=== PATIENT | female | born 1945 | race Hispanic/Latino ===

== ENCOUNTER → 2019-01-17 | Outpatient (CLI) | payer MEDICARE ==
[2019-01-17 11:55] LABS: CLARITY,URINE CLOUDY (CLEAR); COLOR,URINE YELLOW (YELLOW); KETONES,URINE NEGATIVE (NEGATIVE); LEUKOCYTE ESTERASE ,URINE 2+ (NEGATIVE); NITRITE,URINE NEGATIVE (NEGATIVE); PROTEIN,URINE DIPSTICK TRACE (NEGATIVE)
[2019-01-17 11:56] LABS: BASOPHILS % 0.2 % (0.0-1.0); BILIRUBIN,URINE NEGATIVE (NEGATIVE); EOSINOPHILS # (AUTO) 0.2 (0.0-0.4); EOSINOPHILS % 1.4 % (0.0-6.0); HEMATOCRIT 35.7 % (34.2-44.1); HEMOGLOBIN 10.9 g/dL (12.0-16.0); LYMPHOCYTES # (AUTO) 1.8 (1.0-3.2); LYMPHOCYTES % 14.8 % (18.0-39.1); MEAN CORPUSCULAR HEMOGLOBIN 29.8 pg (28-32); MEAN CORPUSCULAR HGB CONC 30.5 g/dL (31-35); MEAN CORPUSCULAR VOLUME 97.5 fL (81-99); MONOCYTES # (AUTO) 1.1 (0.2-0.8); MONOCYTES % 8.8 % (4.4-11.3); NEUTROPHILS # (AUTO) 9.1 (2.1-6.9); NEUTROPHILS % 74.5 % (38.7-80.0); PLATELET COUNT 295 x10e3/uL (140-360); RED BLOOD COUNT 3.66 x10e6/uL (3.6-5.1); RED CELL DISTRIBUTION WIDTH 14.4 % (11.7-14.4); URINE UROBILINOGEN 0.2 mg/dL (0.2 - 1)
[2019-01-17 12:19] LABS: ALBUMIN/GLOBULIN RATIO 0.9 (0.8-2.0); ANION GAP 14.8 mmol/L (8-16); CALCIUM 9.2 mg/dL (8.4-10.2); CREATININE, SERUM 1.93 mg/dL (0.57-1.11); MAGNESIUM 2.1 MG/DL (1.3-2.1); PHOSPHORUS 3.5 MG/DL (2.3-4.7); POTASSIUM 3.8 mmol/L (3.5-5.1)
[2019-01-17 12:32] LABS: TOTAL PROTEIN, URINE 19.7 mg/dL (1-14)
[2019-01-17 12:54] LABS: CREATININE,URINE RANDOM 82.37 mg/dL (47-110)
[2019-01-17 12:55] LABS: PROTEIN/CREATININE RATIO,URINE 0.24
== END ==
LOC: LAB 11:02
PROVIDERS: ATTEND Internal Medicine Nephrology
DX: I25.10 Atherosclerotic heart disease of native coronary artery without angina pectoris (principal); N18.9 Chronic kidney disease, unspecified; D63.1 Anemia in chronic kidney disease; N39.0 Urinary tract infection, site not specified; R33.9 Retention of urine, unspecified; R53.81 Other malaise; M10.9 Gout, unspecified; G47.30 Sleep apnea, unspecified; Z79.899 Other long term (current) drug therapy; Z71.89 Other specified counseling; Z94.0 Kidney transplant status
CPT/HCPCS: 36415; 80053; 80158; 81003; 82570; 83735; 84100; 84156; 84550; 85025; 87086

== ENCOUNTER 2019-11-21 22:10 | Emergency (ER) | payer MEDICARE ==
[~2019-11-21] VITALS: Ht 154.9 cm; Wt 94.3 kg
--- OUTSIDE RECORDS SUMMARY | 2019-11-21 22:14 | XMS REPORT | Summary of Care ---
Author Author [facility] Address [address] [place] [address] Phone Unavailable Care Team Providers Care Environment Coordinator Name Role Phone ANA REIS M.D. 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 Quantity: 30 CHATO David, ANA * Start : 06-May-2008 Active Allergies and Adverse Reactions Name Dates Details Allergy history not documented Status: Procedures Procedure Dates Details History of section Completed History of Spinal surgery Completed History of Cholecystectomy Completed History of Tubal ligation Completed History of Kidney transplantation Completed History of Hysterectomy Completed History of Bladder surgery Completed History of Coronary artery bypass graft Completed 10-Jan-2018 Immunization Name Dates Details Immunizations not documented Social History Name Dates Details Unknown if ever smoked Vital Signs Date Test Result Details No Known Vitals to report Results Date Description Value Details Results not documented Plan of Care Name Dates Details Planned Observations Planned Goals not documented Instructions Name Dates Details Instructions not documented Encounters Appointment; KRISTYN SHARIF M.D. Encounter Diagnosis: Problem not documented On: 01-Apr-2018 14:45 Appointment; ROSA ISELA VALDOVINOS Encounter Diagnosis: Problem not documented On: 22-Jul-2018 10:30 Appointment; ROSA ISELA VALDOVINOS Encounter Diagnosis: Problem not documented On: 12-Aug-2018 11:30 Appointment; ROSA ISELA VALDOVINOS Encounter Diagnosis: Problem not documented On: 18-Oct-2018 10:30 Appointment; ROSA ISELA VALDOVINOS Encounter Diagnosis: Problem not documented On: 30-Oct-2018 10:45 Appointment; ROSA ISELA VALDOVINOS Encounter Diagnosis: Problem not documented On: 20-Nov-2018 10:30
--- OUTSIDE RECORDS SUMMARY | 2019-11-21 22:14 | XMS REPORT ---
[facility] Address Unknown Phone Unavailable Care Team Providers Care Certified Nurse Midwife Name Role Phone BILL DE JESUS Unavailable Unavailable Problems This patient has no known problems. Allergies, Adverse Reactions, Alerts This patient has no known allergies or adverse reactions. Medications This patient has no known medications. Encounters Start Date/Time End Date/Time Encounter Type Admission Type Attending [facility] Care Facility Care Department Encounter ID 2019-04-23 13:21:00 Inpatient U [facility] [id number] 2019-10-08 17:41:00 2019-10-06 21:52:00 Inpatient E [facility] [id number] 2019-09-15 14:40:00 2019-09-15 10:41:00 Inpatient E [facility] [id number] 2019-08-23 10:56:00 2019-08-23 05:18:00 Inpatient E [facility] [id number] 2019-07-30 05:11:00 2019-07-30 01:11:00 Inpatient E [facility] [id number] 2019-07-27 17:17:00 2019-07-27 17:17:00 Emergency E [facility] [id number] 2019-05-07 20:02:00 2019-05-07 16:02:00 Inpatient E [facility] [id number] 2019-03-19 03:00:00 2019-03-18 23:39:00 Inpatient E [facility] [id number] 2019-03-17 16:34:00 2019-03-17 16:34:00 Outpatient [facility] [id number] 2019-01-20 22:20:00 2019-01-20 22:20:00 Emergency E [facility] [id number] 2019-01-17 17:10:00 2019-01-17 17:10:00 Emergency E [facility] [id number] Results Test Description Test Time Test Comments Text Results Atomic Results Result Comments BK VIRUS PCR, PLASMA 2019-01-24 14:32:00 BK VIRUS, PLASMA, NEG (BEAKER) (test isyy=9552) Negative or below the linear range of the assay (<1,000 copies/mL) Patients may have replicating BK Virus which is of no clinical significance. Vi ral load measurements are helpful to identify BK Virus replication of potential clinical significance. Consensus recommendations have been published of thresho ld values for the presumptive diagnosis of polyomavirus-associated nephropathy ( Transplantation 2005;79:6804-3197).A BK Virus load greater than 5,000-10,000 manager copy ies/mL in the plasma is consistent with the presumptive diagnosis of polyoma-ass ociated nephropathy in renal transplant recipients.BK Virus DNA was assessed usi ng quantitative polymerase chain reaction and fluorescent monitoring of a specif ic hybridized probe. Genetic variation and other factors can affect the accurac y of nucleic acid testing. Therefore, the results should be interpreted in ligh t of clinical data.This test was developed and its performance characteristics d etermined by the [facility] Pathology Department, Section of [facility] Pathology. It has not been cleared or approved by the U.S. Food and Drug Administration (FDA). Since FDA approval is not required for clinical use of th e test, validation was done as required by the Clinical Laboratory Improvement A mendments of 1988.CMV PCR, [id number] 13:52:00* Test Item Value Reference Range Comments CMV VIRAL LOAD - NEGATIVE (THIAGOAKER) (test wviw=6057) Negative or below the linear range of the assay (<375 copies/mL) Cytomegalovirus (CMV) infection can cause significant disease in immunosuppresse d patients. However, it is common for CMV to manifest as a limited infection whi ch is of no clinical significance in immunosuppressed patients or in healthy ind ividuals.Viral load measurements are helpful to identify clinical CMV infection and to guide the pre-emptive management of antiviral therapy. For treatment of CMV infection due to reactivation in transplant recipients, a threshold between 4,000 and 5,000 copies/mL is suggested. For treatment of primary CMV infection, a lower threshold can be used.CMV infection may also be monitored using weekly serial measurements. Serial measurements of CMV DNA viral load can be evaluated by identifying a 10-fold change, as well as assessing the CMV DNA viral load and the clinical context for each patient.The plasma CMV DNA viral load was detected using quantitative polymerase chain reaction and fluorescent monitoring of a s pecific hybridized probe. Genetic variation and other factors can affect the acc uracy of nucleic acid testing. Therefore, the results should be interpreted in l ight of clinical data. A negative result may not exclude the presence of CMV dis ease.This test was developed and its performance characteristics determined by [facility] Pathology Department, Section of Molecular Patholog y. It has not been cleared or approved by the U.S. Food and Drug Administration (FDA), since FDA approval is not required for clinical use of the test. Validati on was done as required by The Clinical Laboratory Improvement Amendments of 198 8.CREATININE, RANDOM [id number] 15:27:00* Test Item Value Reference Range Comments CREATININE URINE (BEAKER) (test rokp=417) 26.4 mg/dL Reference Range: No NormalsTACROLIMUS [id number] 14:52:00* Test Item Value Reference Range Comments TACROLIMUS BLOOD (BEAKER) (test tlhc=462) < ng/mL 10.0-20.0 HEMOGLOBIN [id number] 14:03:00* Test Item Value Reference Range Comments HEMOGLOBIN A1C (BEAKER) (test hymh=826) 6.8 % 4.3-6.1 PROTEIN, RANDOM [id number] 13:31:00* Test Item Value Reference Range Comments PROTEIN, URINE (BEAKER) (test bzxs=7990) < mg/dL 0-14 VITAMIN D, [id number] 13:05:00* Test Item Value Reference Range Comments VITAMIN D 25-OH (BEAKER) (test ffag=7427) 39.2 ng/mL 6.6-49.9 Effective 07/11/2017: Reference Range ChangeNew: 6.6-49.9 ng/mL Previous: 13.0 -47.8 ng/mLRecommended Vitamin D Target Range: 30.0-40.0 ng/mLURINALYSIS W/ REFLEX URINE [id number] 12:59:00* Test Item Value Reference Range Comments COLOR (BEAKER) (test bnfc=058) Light Yellow CLARITY (BEAKER) (test ioic=917) Cloudy SPECIFIC GRAVITY UA (BEAKER) (test gesk=777) 1.005 1.001-1.035 PH UA (BEAKER) (test nxfd=215) 8.0 5.0-8.0 PROTEIN UA (BEAKER) (test cjwg=015) 10 mg/dL Negative GLUCOSE UA (BEAKER) (test typd=476) Negative Negative KETONES UA (BEAKER) (test vemp=241) Negative Negative BILIRUBIN UA (BEAKER) (test dnkf=390) Negative Negative BLOOD UA (BEAKER) (test spjx=143) Trace Negative NITRITE UA (BEAKER) (test tcdx=804) Negative Negative LEUKOCYTE ESTERASE UA (BEAKER) (test tdwx=847) Large Negative UROBILINOGEN UA (BEAKER) (test rjfw=618) 0.2 mg/dL 0.2-1.0 RBC UA (BEAKER) (test qlgf=761) 4 /HPF WBC UA (BEAKER) (test kbft=238) 0 /HPF AMORPHOUS CRYSTALS (BEAKER) (test ufkf=5209) Moderate SOURCE(BEAKER) (test kazy=6919) COMPREHENSIVE METABOLIC [id number] 12:57:00* Test Item Value Reference Range Comments TOTAL PROTEIN (BEAKER) (test bgrp=794) 6.3 gm/dL 6.0-8.3 ALBUMIN (BEAKER) (test splz=8182) 3.3 g/dL 3.5-5.0 ALKALINE PHOSPHATASE (BEAKER) (test enjd=480) 84 U/L 40-150 BILIRUBIN TOTAL (BEAKER) (test ptul=376) 0.5 mg/dL 0.2-1.2 SODIUM (BEAKER) (test nbbe=316) 139 meq/L 136-145 POTASSIUM (BEAKER) (test lxko=627) 4.1 meq/L 3.5-5.1 CHLORIDE (BEAKER) (test tuxy=725) 100 meq/L 98-107 CO2 (BEAKER) (test qnub=978) 30 meq/L 22-29 BLOOD UREA NITROGEN (BEAKER) (test nzbw=946) 34 mg/dL 7-21 CREATININE (BEAKER) (test pfxx=890) 1.87 mg/dL 0.57-1.25 GLUCOSE RANDOM (BEAKER) (test wkgn=714) 236 mg/dL 70-105 CALCIUM (BEAKER) (test acyy=396) 9.2 mg/dL 8.4-10.2 AST (SGOT) (BEAKER) (test pfru=610) 19 U/L 5-34 ALT (SGPT) (BEAKER) (test gcty=694) 13 U/L 6-55 EGFR (BEAKER) (test xyvv=5025) 26 mL/min/1.73 sq m ESTIMATED GFR IS NOT ACCURATE CREATININE CLEARANCE IN PREDICTING GLOMERULAR FILTRATION RATE. ESTIMATED GFR IS NOT APPLICABLE FOR DIALYSIS PATIENTS. PTH, [id number] 12:53:00* Test Item Value Reference Range Comments PARATHYROID HORMONE INTACT (BEAKER) (test prbx=625) 187.6 pg/mL 8.5-72.5 URIC [id number] 12:49:00* Test Item Value Reference Range Comments URIC ACID (BEAKER) (test jnar=432) 10.2 mg/dL 2.6-7.2 [id number] 12:49:00* Test Item Value Reference Range Comments MAGNESIUM (BEAKER) (test nmuc=129) 1.8 mg/dL 1.6-2.6 [id number] 12:49:00* Test Item Value Reference Range Comments PHOSPHORUS (BEAKER) (test xrqe=932) 2.7 mg/dL 2.3-4.7 LIPID [id number] 12:49:00* Test Item Value Reference Range Comments TRIGLYCERIDES (BEAKER) (test wpgo=106) 210 mg/dL CHOLESTEROL (BEAKER) (test svqe=566) 111 mg/dL HDL CHOLESTEROL (BEAKER) (test ttej=668) 38 mg/dL LDL CHOLESTEROL CALCULATED (BEAKER) (test jdnn=176) 31 mg/dL Triglyceride Reference Range: Low Risk <150 Borderline 150-199 High Risk 200-499 Very High Risk >=500Cholesterol Reference Range: Low Risk <200 Borderline 200-239 High Risk >240HDL Cholesterol Reference Range: Low Risk >=60 High Risk <40LDL Cholesterol Reference Range: Optimal <100 Near Optimal 100-129 Borderline 130-159 High 160-189 Very High >=190 CBC W/PLT COUNT & AUTO [id number] 12:33:00* Test Item Value Reference Range Comments WHITE BLOOD CELL COUNT (BEAKER) (test ycgf=045) 12.5 K/ L 3.5-10.5 RED BLOOD CELL COUNT (BEAKER) (test pbid=313) 3.50 M/ L 3.93-5.22 HEMOGLOBIN (BEAKER) (test lpln=752) 10.4 GM/DL 11.2-15.7 HEMATOCRIT (BEAKER) (test tyvz=981) 35.4 % 34.1-44.9 MEAN CORPUSCULAR VOLUME (BEAKER) (test sxey=889) 101.1 fL 79.4-94.8 MEAN CORPUSCULAR HEMOGLOBIN (BEAKER) (test vktz=381) 29.7 pg 25.6-32.2 MEAN CORPUSCULAR HEMOGLOBIN CONC (BEAKER) (test fqqb=278) 29.4 GM/DL 32.2-35.5 RED CELL DISTRIBUTION WIDTH (BEAKER) (test ctwi=722) 13.9 % 11.7-14.4 PLATELET COUNT (BEAKER) (test pvsb=615) 338 K/CU MM 150-450 MEAN PLATELET VOLUME (BEAKER) (test wdsh=295) 10.0 fL 9.4-12.3 NUCLEATED RED BLOOD CELLS (BEAKER) (test yydd=112) 0 /100 WBC 0-0 NEUTROPHILS RELATIVE PERCENT (BEAKER) (test eqio=141) 81 % LYMPHOCYTES RELATIVE PERCENT (BEAKER) (test pggz=088) 11 % MONOCYTES RELATIVE PERCENT (BEAKER) (test wkou=389) 5 % EOSINOPHILS RELATIVE PERCENT (BEAKER) (test fqdd=768) 2 % BASOPHILS RELATIVE PERCENT (BEAKER) (test fxtd=724) 0 % NEUTROPHILS ABSOLUTE COUNT (BEAKER) (test qkjq=127) 10.10 K/ L 1.56-6.13 LYMPHOCYTES ABSOLUTE COUNT (BEAKER) (test hxxd=679) 1.40 K/ L 1.18-3.74 MONOCYTES ABSOLUTE COUNT (BEAKER) (test gktq=236) 0.67 K/ L 0.24-0.36 EOSINOPHILS ABSOLUTE COUNT (BEAKER) (test wojl=032) 0.19 K/ L 0.04-0.36 BASOPHILS ABSOLUTE COUNT (BEAKER) (test mrtn=596) 0.03 K/ L 0.01-0.08 IMMATURE GRANULOCYTES-RELATIVE PERCENT (BEAKER) (test gmie=9246) 1 % 0-1
[2019-11-21 22:19] VITALS: BP 113/53
[2019-11-21] MEDS ORDERED: CEFTRIAXONE SOD 1 GM/NS 50 ML 50 ML IV ONE ×2 (23:15→23:21)
[2019-11-21] MEDS ORDERED: CEPHALEXIN500 MG PO (23:15)
== END 2019-11-21 23:51 | disposition home or self-care (01) ==
LOC: FSED 22:10
DX: R30.0 Dysuria (principal); R10.30 Lower abdominal pain, unspecified; N30.91 Cystitis, unspecified with hematuria
CPT/HCPCS: 51700; 80053; 81003; 85025; 87086; 87186; 99284; J0696

== ENCOUNTER 2019-12-13 16:58 | Emergency (ER) | payer MEDICARE ==
[~2019-12-13] VITALS: Ht 154.9 cm; Wt 94.3 kg
[~2019-12-13 16:58] MED LIST: CEPHALEXIN500 MG PO
--- NOTE | 2019-12-13 18:20 | NUR ---
200 CC OF CLEAR YELLOW URINE DRAINING FROM YANCEY, PT STATES FEELS MUCH BETTER.
== END 2019-12-13 18:05 | disposition home or self-care (01) ==
LOC: FSED 16:58
DX: T83.018A Breakdown (mechanical) of other urinary catheter, initial encounter (principal); R33.9 Retention of urine, unspecified; I10 Essential (primary) hypertension; E11.9 Type 2 diabetes mellitus without complications; N18.9 Chronic kidney disease, unspecified; I25.2 Old myocardial infarction; Z95.1 Presence of aortocoronary bypass graft; Z94.0 Kidney transplant status
CPT/HCPCS: 51700; 99282